=== PATIENT | male | born 1955 | race Caucasian/White ===

== ENCOUNTER → 2017-02-08 | Day surgery (SDC) | payer BC ==
[2017-02-05 11:09] VITALS: BMI 25.0
--- NOTE | 2017-02-05 11:44 | PAT Medication Instructions ---
Service Date Feb 05, 2017. Current Home Medication List Acetaminophen (Tylenol), 650 MG PO Q4 PRN for Pain Aspirin (Aspirin Ec), 81 MG PO QAM Yajmmpalkv-Sugnystaonnoh-Fylzu (Fioricet), 1 CAP PO UD PRN for HEADACHE Cyanocobalamin (Vitamin B12), 1 TAB PO QAM Docusate Sodium (Colace), 1 CAP PO QPM Folic Acid (Folvite), 1 MG PO QAM Gabapentin (Neurontin), 100 MG PO BID Loratadine (Loratadine), 1 CAP PO HS Magnesium Oxide (Mag-Ox), 400 MG PO BID Metoprolol Succ (Toprol Xl) (Toprol-Xl), 50 MG PO QPM Multiple Vitamins W/ Minerals (Therems M), 1 TAB PO QAM Omeprazole (Prilosec), 20 MG PO QAM Thiamine Mononitrate (Vitamin B1), 1 TAB PO QAM Tramadol (Ultram), 50 MG PO Q4H PRN for Pain Trazodone Hcl (Trazodone), 50 MG PO HS Medication Instructions For Your Scheduled Surgery - Not taking as of 02/05/17: Aspirin (Aspirin Ec), 81 MG PO QAM - Hold the following medications the morning of surgery: Ueacygjoxg-Kwuifwipgdipn-Botqv (Fioricet), 1 CAP PO UD PRN for HEADACHE Cyanocobalamin (Vitamin B12), 1 TAB PO QAM Folic Acid (Folvite), 1 MG PO QAM Magnesium Oxide (Mag-Ox), 400 MG PO BID Multiple Vitamins W/ Minerals (Therems M), 1 TAB PO QAM Thiamine Mononitrate (Vitamin B1), 1 TAB PO QAM - Take the following medications the morning of surgery with a sip of water OTHERWISE NOTHING TO EAT OR DRINK AFTER MIDNIGHT: Acetaminophen (Tylenol), 650 MG PO Q4 PRN for Pain (may take if needed up to 4 hours prior to surgery) Tramadol (Ultram), 50 MG PO Q4H PRN for Pain (may take if needed up to 4 hours prior to surgery) Gabapentin (Neurontin), 100 MG PO BID Omeprazole (Prilosec), 20 MG PO QAM - Take the following medications as scheduled the night before surgery: Trazodone Hcl (Trazodone), 50 MG PO HS Acetaminophen (Tylenol), 650 MG PO Q4 PRN for Pain Gabapentin (Neurontin), 100 MG PO BID Docusate Sodium (Colace), 1 CAP PO QPM Loratadine (Loratadine), 1 CAP PO HS Tramadol (Ultram), 50 MG PO Q4H PRN for Pain Magnesium Oxide (Mag-Ox), 400 MG PO BID Metoprolol Succ (Toprol Xl) (Toprol-Xl), 50 MG PO QPM If you have any questions please call us at [phone] or [phone] or [phone]
[2017-02-05 12:48] LABS: BASO % 0.2 %; BASO ABS # 0.01 K/uL (0-0.2); COMPLETE YES; EOS % 1.2 %; HEMATOCRIT 45.2 % (42-52); IG% 0.3 %; LYMPH % 20.9 %; LYMPH ABS # 1.23 K/uL (1.2-3.4); MEAN CELL VOLUME 93.8 fL (80-100); MEAN CORPUSCULAR HEMOGLOBIN 32.2 pg (25-34); MEAN CORPUSCULAR HGB CONC 34.3 g/dl (32-36); MEAN PLATELET VOLUME 9.8 fL (7.4-10.4); NEUT % 69.4 %; PLATELET COUNT 193 K/uL (130-400); RED BLOOD COUNT 4.82 M/uL (4.7-6.1); WHITE BLOOD COUNT 5.88 K/uL (4.8-10.8)
[2017-02-05 13:25] LABS: BUN/CREATININE RATIO 17.3 (10-20); CALCIUM 9.2 mg/dl (8.5-10.1); CREATININE 0.83 mg/dl (0.60-1.40); POTASSIUM 4.6 mmol/L (3.5-5.1)
--- NOTE | 2017-02-07 17:17 | History and Physical ---
History & Physical Date Feb 07, 2017. Chief Complaint trach not healing History of Present Illness The patient is a 62 year old male with complaints of tracheal cutaneous fistula , s/p Guillain-[place] Additional History Hepatic Disease: No Endocrine Disorder: No Kidney Disease: No Hypertension: No Heart Disease: No Bleeding Tendencies: No Infectious Diseases: Yes Other: neuro: weakness Allergies Coded Allergies: NO KNOWN DRUG ALLERGIES (Verified Allergy, Unknown, NKDA, 02/05/17) Home Medications Scheduled Aspirin (Aspirin Ec), 81 MG PO QAM Cyanocobalamin (Vitamin B12), 1 TAB PO QAM Docusate Sodium (Colace), 1 CAP PO QPM Folic Acid (Folvite), 1 MG PO QAM Gabapentin (Neurontin), 100 MG PO BID Loratadine (Loratadine), 1 CAP PO HS Magnesium Oxide (Mag-Ox), 400 MG PO BID Metoprolol Succ (Toprol Xl) (Toprol-Xl), 50 MG PO QPM Multiple Vitamins W/ Minerals (Therems M), 1 TAB PO QAM Omeprazole (Prilosec), 20 MG PO QAM Thiamine Mononitrate (Vitamin B1), 1 TAB PO QAM Trazodone Hcl (Trazodone), 50 MG PO HS Scheduled PRN Acetaminophen (Tylenol), 650 MG PO Q4 PRN for Pain Vtfbxnxhpe-Azpnygrzmhatz-Gvyaa (Fioricet), 1 CAP PO UD PRN for HEADACHE Tramadol (Ultram), 50 MG PO Q4H PRN for Pain Physical Examination Skin: warm/dry, no rash Eyes: normal inspection, EOMI, sclerae normal ENT: normal ENT inspection, pharynx normal Head: normocephalic, atraumatic Neck: + pertinent finding (fistula/trach) Respiratory/Chest: lungs clear, normal breath sounds, no respiratory distress Cardiovascular: regular rate, rhythm, no edema, no murmur Abdomen / GI: normal bowel sounds, non tender Back: normal inspection Extremities: + pertinent finding (weak) Neurologic/Psych: + pertinent finding (weak) Diagnosis tracheal cutaneous fistula Plan of Treatment closure
[~2017-02-08] VITALS: Ht 203.2 cm; Wt 105.8 kg
[~2017-02-08] MED LIST: ACET-1311 PO; ASPI81TA28 PO; ATROPINE SULFATE 0.1 MG/ML 5ML SYR IV PRN; BACITRACIN OINT 15 GM TUBE ONE; BUTA1CAP17 PO; CEFAZOLIN SOD 1 GM VIAL ONE; CYAN100020 PO; DOCU-94 PO; FENTANYL CITRATE INJ 50 MCG/1 ML 2 ML VIAL IV PRN; FENTANYL CITRATE INJ 50 MCG/1 ML 2 ML VIAL ONE; FOLI1TAB7 PO; GABA-112 PO; LACTATED RINGER'S 1000ML 1,000 ML IV SCH; LIDO 2%/EPINEPHRINE 1:100000 20 ML VIAL INFIL ONE; LIDOCAINE HCL 2% 2 ML VIAL (20MG/ML) ONE; LORA10CA10 PO; MAGN400T5 PO; METO50TA7 PO; MIDAZOLAM HCL 1 MG/ML 2ML VIAL ONE; MULTTAB63 PO; ONDANSETRON INJ 2 MG/ML 2 ML VIAL IV PRN; OXYCODONE/ACETAMINOPHEN 5-325 TAB PO PRN; PRLSR20 PO; PROPOFOL IV EMULSION 10 MG/ML 20 ML VIAL IV ONE; SODIUM CHLORIDE 0.9% 1000ML 1,000 ML IV SCH; THIA1TAB11 PO; TRAM-10 PO; TRAZ50TA35 PO
--- NOTE | 2017-02-08 08:53 | History & Physical Bridge Note ---
H&P Re-Evaluation Bridge Note: I have examined the patient, reviewed the History & Physical and in the interval since the performance of the History & Physical I have noted the following changes of clinical significance: No changes noted
[2017-02-08 09:42] VITALS: BP 136/76; PULSE 76; TEMP 36.9; O2SAT 98; Ht 203.2 cm; Wt 105.8 kg
[2017-02-08 11:31] VITALS: BP 123/73; PULSE 77; TEMP 36.9; O2SAT 99
--- NOTE | 2017-02-08 11:44 | Discharge Instructions ---
Discharge Instructions Date of Service Feb 08, 2017. Admission Reason for Admission: Tracheal Cutaneous Fistula Discharge Discharge Diagnosis / Problem: same Discharge Goals Goal(s): Improve function Activity Recommendations Activity Limitations: resume your previous activity . Instructions / Follow-Up Instructions / Follow-Up retun Saturday to my office for removal of drain then 1 week later for sutures avoid coughing or straining or blowing call [phone], Dr. Silva cell phone for any problems, go to ER for emergency Current Hospital Diet Patient's current hospital diet: Discharge Diet Recommended Diet: Regular Diet Procedures Procedures Performed: Closure of Tracheal Cutaneous Fistula Pending Studies Studies pending at discharge: no Medical Emergencies . Who to Call and When: Medical Emergencies: If at any time you feel your situation is an emergency, please call 911 immediately. . Non-Emergent Contact Non-Emergency issues call your: Primary Care Provider . "Provider Documentation" section prepared by Cammie Silva. . VTE Core Measure Inpt VTE Proph given/why not?: SCD's [place] Drug Monitoring Program Search Results: no issues identified
[2017-02-08 12:00] VITALS: BP 117/71; PULSE 70; TEMP 36.8; O2SAT 97
--- NOTE | 2017-02-08 12:17 | OPERATIVE REPORT ---
DATE OF OPERATION: 02/08/2017 PREOPERATIVE DIAGNOSIS: Tracheocutaneous fistula. POSTOPERATIVE DIAGNOSIS: Same. PROCEDURE: Excision tracheocutaneous fistula. Z-plasty flap closure SURGEON: Dr. Silva. ANESTHESIA: Local with sedation. COMPLICATIONS: None. 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 This would not close over the last several months and the patient requested closure of the fistula. PROCEDURE IN DETAIL: The patient brought to the operating room and placed in supine position. He was sedated, prepped with Betadine paint and draped in the usual sterile manner. The excision was around the tracheal stoma. The Z-plasty skin flaps were delineated. The excision and the flaps were elevated using 15 blade, carried down through the skin and subcutaneous layer to the strap muscle layer, elevating the right and left skin flaps and then excising the fistula of skin down to the trachea. In this manner, the entire fistula was removed down to the trachea and the tracheal stoma opening was closed using [id number] 4-0 Vicryl sutures. The strap muscle layer was closed using interrupted 4-0 Vicryl sutures. A [place] drain was placed lower down between the strap muscles, exiting the skin. The Z-plasties which were previously elevated, were rotated in place and closed using interrupted 3-0 chromic sutures subcutaneously and then closed with interrupted 4-0 nylon sutures. The drain was sewn in place. The patient tolerated the procedure well. A light dressing was placed and he was taken to recovery area in satisfactory condition. I attest to the content of the Intraoperative Record and any orders documented therein. Any exceptions are noted below. KELSEA
--- NOTE | 2017-02-08 13:26 | Anesthesiology Progress Note ---
Anesthesia Post Op Note Date & Time Feb 08, 2017 at 13:26 Vital Signs Pain Intensity: 0 Vital Signs Past 12 Hours Date Time Temp Pulse Resp B/P Pulse Ox O2 Delivery O2 Flow Rate FiO2 02/08/17 12:00 36.8 70 20 117/71 97 Room Air 02/08/17 11:31 36.9 77 20 123/73 99 Room Air 02/08/17 09:42 36.9 76 18 136/76 98 Room Air Notes Mental Status: alert / awake / arousable, participated in evaluation Pt Amnestic to Procedure: Yes Nausea / Vomiting: adequately controlled Pain: adequately controlled Airway Patency, RR, SpO2: stable & adequate BP & HR: stable & adequate Hydration State: stable & adequate Anesthetic Complications: no major complications apparent
== END | disposition home or self-care (01) ==
LOC: C.ACU 09:03
PROVIDERS: ATTEND Otolaryngology
DX: J86.0 Pyothorax with fistula (principal); Z79.82 Long term (current) use of aspirin; Z79.899 Other long term (current) drug therapy